=== PATIENT | female | born 1985 | race Two or more races ===

== ENCOUNTER 2020-08-10 13:12 | Inpatient (IN) | payer OTHER ==
[~2020-08-10] VITALS: Ht 160 cm; Wt 67.1 kg
[2020-08-10] MEDS ORDERED: [UNRECOGNIZED DRUG - OTHER] (15:11)
[2020-08-10] MEDS ORDERED: SYNTHROID100 MCG PO (15:12)
== END 2020-08-12 10:13 | disposition home or self-care (01) | DRG 819 ==
LOC: LDR 13:12 → OB/GYN 08-11 15:20
PROVIDERS: ADMIT Obstetrics & Gynecology Maternal & Fetal Medicine; ATTEND Obstetrics & Gynecology Maternal & Fetal Medicine
PROC: 0UVC7ZZ Restriction of Cervix, Via Natural or Artificial Opening (ICD-10-PCS; principal; 2020-08-10 16:00)
DX: O34.32 Maternal care for cervical incompetence, second trimester (principal); Z3A.23 23 weeks gestation of pregnancy; Z20.828 Contact with and (suspected) exposure to other viral communicable diseases; O99.282 Endocrine, nutritional and metabolic diseases complicating pregnancy, second trimester; E03.8 Other specified hypothyroidism

== ENCOUNTER 2020-08-16 09:38 | Outpatient (CLI) | payer OTHER ==
[~2020-08-16 09:38] MED LIST: SYNTHROID100 MCG PO; [UNRECOGNIZED DRUG - OTHER]
== END 2020-08-16 11:53 | disposition home or self-care (01) ==
LOC: NST 09:38
PROVIDERS: ATTEND Obstetrics & Gynecology Maternal & Fetal Medicine
DX: Z34.82 Encounter for supervision of other normal pregnancy, second trimester (principal)

== ENCOUNTER → 2020-08-23 | Outpatient (CLI) | payer OTHER | END | disposition home or self-care (01) | LOC: NST 14:06 | PROVIDERS: ATTEND Obstetrics & Gynecology | DX: Z34.82 Encounter for supervision of other normal pregnancy, second trimester (principal) ==

== ENCOUNTER 2020-11-12 13:00 | Inpatient (IN) | payer OTHER ==
[~2020-11-12] VITALS: Ht 160 cm; Wt 73.5 kg
== END 2020-12-07 15:18 | disposition home or self-care (01) | DRG 807 ==
LOC: OB/GYN 12-02 13:00 → LDR 12-05 06:03 → SURG-SUITE 12-05 14:48
PROVIDERS: ADMIT Obstetrics & Gynecology; ATTEND Obstetrics & Gynecology
PROC: 10E0XZZ Delivery of Products of Conception, External Approach (ICD-10-PCS; principal; 2020-12-05)
PROC: 0KQM0ZZ Repair Perineum Muscle, Open Approach (ICD-10-PCS; 2020-12-05)
PROC: 0W8NXZZ Division of Female Perineum, External Approach (ICD-10-PCS; 2020-12-05)
PROC: 10907ZC Drainage of Amniotic Fluid, Therapeutic from Products of Conception, Via Natural or Artificial Opening (ICD-10-PCS; 2020-12-05)
PROC: 3E033VJ Introduction of Other Hormone into Peripheral Vein, Percutaneous Approach (ICD-10-PCS; 2020-12-05)
PROC: 4A1HXFZ Monitoring of Products of Conception, Cardiac Rhythm, External Approach (ICD-10-PCS; 2020-12-05)
DX: O70.1 Second degree perineal laceration during delivery (principal); Z37.0 Single live birth; Z3A.40 40 weeks gestation of pregnancy; Z20.822 Contact with and (suspected) exposure to COVID-19

== ENCOUNTER 2020-11-27 10:02 | Outpatient (CLI) | payer OTHER | END 2020-11-27 10:58 | disposition home or self-care (01) | LOC: NST 10:02 | PROVIDERS: ATTEND Obstetrics & Gynecology Maternal & Fetal Medicine | DX: Z34.83 Encounter for supervision of other normal pregnancy, third trimester (principal) ==

== ENCOUNTER 2020-12-04 10:24 | Outpatient (CLI) | payer OTHER | END 2020-12-04 11:15 | disposition home or self-care (01) | LOC: NST 10:24 | PROVIDERS: ATTEND Obstetrics & Gynecology | DX: Z34.83 Encounter for supervision of other normal pregnancy, third trimester (principal) ==